=== PATIENT | female | born 1990 | race African-American/Black ===

== ENCOUNTER 2022-06-06 14:36 | Outpatient (CLI) | payer BC, OTHER | END 2022-06-06 14:37 | disposition home or self-care (01) | LOC: CSHLAB 14:36 | PROVIDERS: ATTEND Obstetrics & Gynecology | DX: Z01.812 Encounter for preprocedural laboratory examination (principal); Z20.822 Contact with and (suspected) exposure to COVID-19 | CPT/HCPCS: 84703; 85027; 86850; 86900; 86901; 87811 ==

== ENCOUNTER 2022-06-11 09:56 | Day surgery (SDC) | payer BC, OTHER ==
[2022-06-06 16:09] LABS: Hemoglobin 12.1 g/dL (12.0-15.5); Mean Corpuscular HGB CONC 32.4 g/dL (32.0-36.0); Mean Corpuscular Hemoglobin 27.6 pg (27.0-33.0); Mean Corpuscular Volume 85.4 fl (81.6-98.3); Mean Platelet Volume 10.4 fl (7.4-10.4); Platelet Count 327 10x3/uL (150-450); RBC Distribution Width 13.7 % (11.5-14.5); Red Blood Cell (RBC) Count 4.38 10x6/uL (3.90-5.03)
[2022-06-06 16:22] LABS: BHCG - Serum Negative (NEGATIVE); Pregs Control Background? CLEAR/WHITE (CLR/WHITE); Pregs Control Bar Appear? YES (CONTROL BAR)
[2022-06-10 10:54] VITALS: BMI 33.9
[2022-06-11] MEDS ORDERED: Gabapentin 300 MG CAP ONE (10:16)
[2022-06-11] MEDS ORDERED: Lidocaine 1% MPF 2 ML VIAL ONE (10:17)
[2022-06-11] MEDS ORDERED: CeleCOXIB 100 MG CAP ONE (10:17)
[2022-06-11] MEDS ORDERED: EPINEPHrine 1 MG/ML AMP ONE (10:40)
[2022-06-11] MEDS ORDERED: Bupivacaine 0.25% HCL 30 ML VIAL ONE (10:40)
[2022-06-11] MEDS ORDERED: Fentanyl 100 MCG/2 ML VIAL ONE ×2 (10:53→12:32)
[2022-06-11] MEDS ORDERED: Lidocaine 1% PF 5 ML VIAL ONE (10:53)
[2022-06-11] MEDS ORDERED: PROPOFOL 20 ML ONE (10:53)
[2022-06-11] MEDS ORDERED: Midazolam HCl 2 mg/2 ml Vial ONE (10:53)
[2022-06-11] MEDS ORDERED: Dexamethasone 20 MG/5 ML VIAL ONE (10:53)
[2022-06-11] MEDS ORDERED: Ondansetron PF 4 MG/2 ML Vial ONE (10:53)
[2022-06-11] MEDS ORDERED: Lidocaine 2% PF 5 ML VIAL ONE (10:54)
[2022-06-11] MEDS ORDERED: Ketorolac Tromethamine 30 MG/ML VIAL ONE (10:54)
[2022-06-11] MEDS ORDERED: CEFAZOLIN 2 GM VIAL ONE (10:58)
[2022-06-11] MEDS ORDERED: HYDROmorphone 0.5 MG/0.5 ML SYRINGE ONE (11:01)
[2022-06-11] MEDS ORDERED: PHENYLEPHRINE-NS 100 MCG/ML 10 ML SYRINGE ONE (11:25)
[2022-06-11] MEDS ORDERED: ePHEDrine Sulfate 50 MG/10 ML VIAL ONE (11:35)
[2022-06-11] MEDS ORDERED: HYDROcodone/Acetaminophen 5/325 mg Tablet ONE (13:59)
== END 2022-06-11 15:40 | disposition home or self-care (01) ==
LOC: CSHSDC 09:56
PROVIDERS: ATTEND Obstetrics & Gynecology
PROC: 0UBL0ZZ Excision of Vestibular Gland, Open Approach (ICD-10-PCS; principal; 2022-06-11)
DX: N75.0 Cyst of Bartholin's gland (principal); Z20.822 Contact with and (suspected) exposure to COVID-19
CPT/HCPCS: 84703; 85027; 86850; 86900; 86901; 87811; 88304; 99283; J0171; J0690; J1100; J1170; J1885; J2001; J2250; J2405; J2704; J3010; S0020

== ENCOUNTER 2022-06-11 20:26 | Emergency (ER) | payer BC, OTHER ==
[2022-06-11] MEDS ORDERED: HYDROcodone/Acetaminophen 5/325 mg Tablet ONE (21:26)
== END 2022-06-11 21:53 | disposition home or self-care (01) ==
LOC: CSHERS 20:26
DX: N90.89 Other specified noninflammatory disorders of vulva and perineum (principal); G89.18 Other acute postprocedural pain

== ENCOUNTER 2022-06-20 13:57 | Day surgery (SDC) | payer BC, OTHER ==
[2022-06-20] MEDS ORDERED: PROPOFOL 20 ML ONE (14:28)
[2022-06-20] MEDS ORDERED: Fentanyl 100 MCG/2 ML VIAL ONE (14:28)
[2022-06-20] MEDS ORDERED: Ondansetron PF 4 MG/2 ML Vial ONE (14:29)
[2022-06-20] MEDS ORDERED: Lidocaine 1% PF 5 ML VIAL ONE (14:29)
[2022-06-20] MEDS ORDERED: Dexamethasone 4 mg/ml Vial ONE (14:29)
[2022-06-20] MEDS ORDERED: CEFAZOLIN 2 GM VIAL ONE (14:29)
[2022-06-20] MEDS ORDERED: Ketorolac Tromethamine 30 MG/ML VIAL ONE (14:31)
[2022-06-20] MEDS ORDERED: CEFAZOLIN 1 GM VIAL ONE ×2 (14:47→14:48)
== END 2022-06-20 16:15 | disposition home or self-care (01) ==
LOC: CSHSDC 13:57
PROVIDERS: ATTEND Obstetrics & Gynecology
PROC: 0U9M0ZZ Drainage of Vulva, Open Approach (ICD-10-PCS; principal; 2022-06-20)
DX: N99.840 Postprocedural hematoma of a genitourinary system organ or structure following a genitourinary system procedure (principal); Z20.822 Contact with and (suspected) exposure to COVID-19
CPT/HCPCS: 87811; J0690; J1100; J1885; J2405; J2704; J3010

== ENCOUNTER 2022-06-30 08:24 | Outpatient (CLI) | payer BC, OTHER | END 2022-06-30 08:25 | disposition home or self-care (01) | LOC: CSHWCC 08:24 | PROVIDERS: ATTEND Preventive Medicine Undersea and Hyperbaric Medicine | DX: T81.89XD Other complications of procedures, not elsewhere classified, subsequent encounter (principal) | CPT/HCPCS: 99203; G0463 ==

== ENCOUNTER 2022-07-03 14:26 | Outpatient (CLI) | payer BC, OTHER | END 2022-07-03 14:27 | disposition home or self-care (01) | LOC: CSHWCC 14:26 | PROVIDERS: ATTEND Preventive Medicine Undersea and Hyperbaric Medicine | DX: T81.89XD Other complications of procedures, not elsewhere classified, subsequent encounter (principal) | CPT/HCPCS: 99212; G0463 ==

== ENCOUNTER 2022-07-16 09:25 | Outpatient (CLI) | payer BC, OTHER | END 2022-07-16 09:26 | disposition home or self-care (01) | LOC: CSHWCC 09:25 | PROVIDERS: ATTEND Preventive Medicine Undersea and Hyperbaric Medicine | DX: T81.89XD Other complications of procedures, not elsewhere classified, subsequent encounter (principal) | CPT/HCPCS: 99213; G0463 ==

== ENCOUNTER 2022-07-18 10:24 | Outpatient (CLI) | payer BC, OTHER | END 2022-07-18 10:25 | disposition home or self-care (01) | LOC: CSHWCC 10:24 | PROVIDERS: ATTEND Family Medicine | DX: T81.89XD Other complications of procedures, not elsewhere classified, subsequent encounter (principal) ==

== ENCOUNTER 2022-07-30 10:33 | Outpatient (CLI) | payer BC, OTHER | END 2022-07-30 10:34 | disposition home or self-care (01) | LOC: CSHWCC 10:33 | PROVIDERS: ATTEND Preventive Medicine Undersea and Hyperbaric Medicine | DX: T81.89XD Other complications of procedures, not elsewhere classified, subsequent encounter (principal) | CPT/HCPCS: 99212; G0463 ==